=== PATIENT | female | born 1970 | race Caucasian/White ===

== ENCOUNTER 2021-10-24 14:09 | Emergency (ER) | payer OTHER ==
[2021-10-24 14:42] LABS: BASOPHIL 0.8 % (0-2); EOSINOPHIL 0.4 % (0-5); HCT 46.6 % (37.0-47.0); LYMPHOCYTE 20.7 % (15-48); MCH 33.8 pg (25.0-31.0); MCHC 34.3 g/dL (32.0-36.0); MCV 98.5 fL (78.0-100.0); MONOCYTE 8.1 % (0-12); MPV 8.8 fL (6.0-9.5); NEUTROPHIL 69.7 % (41-80); NRBC 0; PLT 230 K/uL (150-400); RBC 4.73 M/uL (4.20-5.40); RDW 12.8 % (11.5-14.0); WBC 7.1 K/uL (4.0-10.5)
[2021-10-24 15:00] LABS: BUN/CREAT RATIO (CALC) 15.8 RATIO; CREATININE 0.57 mg/dL (0.51-0.95); POTASSIUM 3.8 mmol/L (3.5-5.1)
[2021-10-24 16:58] LABS: BILIRUBIN NEGATIVE (NEGATIVE); BLOOD NEGATIVE Ery/uL (NEGATIVE); CLARITY CLEAR (CLEAR); COLOR YELLOW (YELLOW); GLUCOSE (U) NORMAL (NORMAL); LEUKOCYTES NEGATIVE Leu/uL (NEGATIVE); NITRITE NEGATIVE (NEGATIVE); PROTEIN NEGATIVE (NEGATIVE); UROBILINOGEN 0.2 mg/dL (0.2-1.0); pH 6.5 (5.0-9.0)
[2021-10-24] MEDS ORDERED: PREDNISONE 20MG20 MG PO (18:28)
[2021-10-24] MEDS ORDERED: NAPROXEN500 MG PO (18:28)
== END 2021-10-24 19:15 | disposition home or self-care (01) ==
LOC: FER 14:09
PROVIDERS: Nurse Practitioner Family
DX: R07.89 Other chest pain (principal); I10 Essential (primary) hypertension; F17.210 Nicotine dependence, cigarettes, uncomplicated; Z88.0 Allergy status to penicillin; Z88.8 Allergy status to other drugs, medicaments and biological substances
CPT/HCPCS: 36415; 71045; 80048; 81003; 84484; 85025; 93005; J1100; J1885